=== PATIENT | male | born 1970 | race African-American/Black ===

== ENCOUNTER 2021-12-17 00:12 | Emergency (ER) | payer SELFPAY ==
[~2021-12-17] VITALS: Ht 175.3 cm; Wt 97.5 kg
[2021-12-17] MEDS ORDERED: IBUPROFEN 400 MG TAB PO STA (00:28)
[2021-12-17] MEDS ORDERED: HYDROCODONE/APAP 5MG-325MG TAB PO ONE (00:30)
[2021-12-17] MEDS ORDERED: IBUPROFEN 400 MG TAB ONE (00:47)
[2021-12-17] MEDS ORDERED: CEFDINIR300 MG PO (03:16)
[2021-12-17 04:34] VITALS: BP 104/61
== END 2021-12-17 04:25 | disposition home or self-care (01) ==
LOC: FSED 00:29
DX: R50.9 Fever, unspecified (principal); J02.9 Acute pharyngitis, unspecified; Z20.822 Contact with and (suspected) exposure to COVID-19
CPT/HCPCS: 99283; U0002